=== PATIENT | male | born 1970 | race Caucasian/White ===

== ENCOUNTER 2023-04-28 09:27 | Day surgery (SDC) | payer BC ==
[~2023-04-28 09:27] MED LIST: Midazolam 1 MG/ML 2 ML SDV ONE; Propofol 200 MG/20 ML SDV ONE
[2023-04-28] MEDS ORDERED: Sodium Chloride 0.9% 10 ML Syringe FLUSH PRN (09:30)
[2023-04-28] MEDS: Lactated Ringers 1,000 ML IV SCH (09:54)
== END 2023-04-28 11:45 | disposition home or self-care (01) ==
LOC: LL.SDS 09:27
PROVIDERS: ATTEND Surgery
DX: Z12.11 Encounter for screening for malignant neoplasm of colon (principal); M10.9 Gout, unspecified; I10 Essential (primary) hypertension; E78.5 Hyperlipidemia, unspecified; E66.9 Obesity, unspecified; Z98.84 Bariatric surgery status; Z90.79 Acquired absence of other genital organ(s); Z79.899 Other long term (current) drug therapy
CPT/HCPCS: 00812; J2250; J2704; J7120